=== PATIENT | female | born 1995 | race Caucasian/White ===

== ENCOUNTER 2019-02-28 16:59 | Emergency (ER) | payer OTHER ==
--- NOTE | 2019-02-28 17:50 | ER Document Report ---
ED Medical Screen (RME) - General Chief Complaint: Vag Bleeding, +preg <12wks Stated Complaint: VAGINAL BLEEDING Time Seen by Provider: 02/28/19 17:47 Mode of Arrival: Ambulatory Information source: Patient Notes: Patient is currently 6 weeks G1, P0 reports vaginal bleeding that started today. 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 Patient denies any pelvic tenderness or urinary symptoms. Patient has not had an ultrasound to confirm the . I have greeted and performed a rapid initial assessment of this patient. A comprehensive ED assessment and evaluation of the patient, analysis of test results and completion of the medical decision making process will be conducted by additional ED providers. - Related Data Allergies/Adverse Reactions: amoxicillin Allergy (Verified 02/28/19 17:45) hands and feet swell Physical Exam - Vital signs Vitals: Temp Pulse Resp BP Pulse Ox 97.9 F 97 16 146/75 H 100 02/28/19 17:07 02/28/19 17:07 02/28/19 17:07 02/28/19 17:07 02/28/19 17:07 - General General appearance: Appears well, Alert In distress: None Course - Vital Signs Vital signs: Temp Pulse Resp BP Pulse Ox 97.9 F 97 16 146/75 H 100 02/28/19 17:07 02/28/19 17:07 02/28/19 17:07 02/28/19 17:07 02/28/19 17:07
[2019-02-28 18:50] LABS: ABSOLUTE EOSINOPHILS # (AUTO) 0.1 10^3/uL (0.0-0.6); ABSOLUTE MONOCYTES (AUTO) 0.6 10^3/uL (0.1-1.4); ABSOLUTE NEUT (AUTO) 5.6 10^3/uL (1.7-8.2); BASOPHILS % (AUTO) 0.2 % (0-2); HEMOGLOBIN 13.2 g/dL (12.0-15.5); MEAN CORPUSCULAR HEMOGLOBIN 28.3 pg (27.0-33.4); MEAN CORPUSCULAR HGB CONC 33.8 g/dL (32.0-36.0); MEAN CORPUSCULAR VOLUME 84 fl (80-97); MONOCYTES % (AUTO) 6.6 % (3-13); PLATELET COUNT 210 10^3/uL (150-450); RED BLOOD COUNT 4.66 10^6/uL (3.72-5.28); RED CELL DISTRIBUTION WIDTH 14.3 % (11.5-14.0); SEGMENTED NEUTROPHILS % (AUTO) 60.2 % (42-78); TOTAL CELLS COUNTED % (AUTO) 100 %; WHITE BLOOD COUNT 9.3 10^3/uL (4.0-10.5)
--- NOTE | 2019-02-28 21:46 | RADIOLOGY REPORT (SQ) ---
EXAM DESCRIPTION: US TRANSVAGINAL COMPLETED DATE/TME: 02/28/2019 17:49 CLINICAL HISTORY: 23 years, Female, vag bleeding COMPARISON: None. TECHNIQUE: Axial 2-D grayscale images of the pelvis were obtained. Doppler was utilized. LIMITATIONS: None. FINDINGS: Uterus measures 9.4 x 6.3 x 6.5 cm in size. An intrauterine gestational sac is identified with measurements as follows: Mean sac diameter is 1.22 cm for an estimated gestational age of six weeks and zero days. Yolk sac is evident, measuring 0.22 cm. pole was not clearly identified. Cervix is closed, measuring 4.0 cm in length. Right ovary measures 1.4 x 3.0 x 3.1 cm in size. It demonstrates normal echogenicity and elements of Doppler flow. Left ovary measures 3.3 x 2.4 x 2.7 cm in size. It demonstrates several normal-appearing peripheral follicles as well as Doppler flow. A tiny amount of free fluid is noted in the region of the left adnexa. IMPRESSION: No acute findings within the pelvis. Intrauterine gestational sac identified, as above described. No pole is currently present. Continued clinical and sonographic follow-up is recommended to confirm the development of a viable intrauterine . copyright 2010 [employer]- All Rights Reserved
[2019-02-28 22:10] LABS: APPEARANCE,URINE CLEAR; BILIRUBIN,URINE NEGATIVE (NEGATIVE); COLOR,URINE STRAW; GLUCOSE, URINE NEGATIVE (NEGATIVE); KETONES,URINE NEGATIVE (NEGATIVE); LEUKOCYTE ESTERASE,URINE NEGATIVE (NEGATIVE); NITRITE,URINE NEGATIVE (NEGATIVE); PROTEIN,URINE NEGATIVE (NEGATIVE); URINE SPECIFIC GRAVITY 1.003; UROBILINOGEN,URINE NEGATIVE mg/dL (<2.0)
[2019-02-28] MEDS ORDERED: LIDOCAINE 1% INJ (10 MG/ML) 10 ML MDV INJ ONE (22:14)
--- NOTE | 2019-02-28 23:01 | ER Document Report ---
ED GI/ - General Chief Complaint: Vaginal Bleeding Stated Complaint: VAGINAL BLEEDING Time Seen by Provider: 02/28/19 17:47 Primary Care Provider: [facility] [Provider Group] - Follow up tomorrow Mode of Arrival: Ambulatory Notes: Patient is a 23-year-old female that comes to the emergency department for chief complaint of vaginal bleeding. She states this started prior to arrival but stopped. She denies any current pain or bleeding. She denies flank pain, fever, nausea or vomiting. She states she is G1, P0 at 6 weeks gestation by last menstrual period, she had a positive urinalysis test with [facility] that she saw within the past day. She denies any medical history or daily medications. - Related Data Allergies/Adverse Reactions: amoxicillin Allergy (Verified 02/28/19 17:45) hands and feet swell Home Medications: Vitamins Past Medical History - General Information source: Patient Last Menstrual Period: 01/15/2019 - Social History Smoking Status: Never Smoker Chew tobacco use (# tins/day): No Frequency of alcohol use: None Drug Abuse: None Lives with: Family Family History: Reviewed & Not Pertinent Patient has suicidal ideation: No Patient has homicidal ideation: No - Medical History Medical History: Negative Surgical Hx: Negative - Immunizations Immunizations up to date: Yes Hx Diphtheria, Pertussis, Tetanus Vaccination: Yes Review of Systems - Review of Systems Constitutional: No symptoms reported EENT: No symptoms reported Cardiovascular: No symptoms reported Respiratory: No symptoms reported Gastrointestinal: No symptoms reported Genitourinary: No symptoms reported Female Genitourinary: See HPI Musculoskeletal: No symptoms reported Skin: No symptoms reported Hematologic/Lymphatic: No symptoms reported Neurological/Psychological: No symptoms reported Physical Exam - Vital signs Vitals: Temp Pulse Resp BP Pulse Ox 97.9 F 97 16 146/75 H 100 02/28/19 17:07 02/28/19 17:07 02/28/19 17:07 02/28/19 17:07 02/28/19 17:07 - Notes Notes: GENERAL: Alert, interacts well. No acute distress. HEAD: Normocephalic, atraumatic. EYES: Pupils equal, round, and reactive to light. Extraocular movements intact. ENT: Oral mucosa moist, tongue midline. Oropharynx unremarkable. Airway patent. NECK: Full range of motion. Supple. Trachea midline. LUNGS: Clear to auscultation bilaterally, no wheezes, rales, or rhonchi. No respiratory distress. HEART: Regular rate and rhythm. No murmur ABDOMEN: Soft, non-tender. Non-distended. EXTREMITIES: Moves all 4 extremities spontaneously. No edema, normal radial and dorsalis pedis pulses bilaterally. No cyanosis. BACK: no cervical, thoracic, lumbar midline tenderness. No saddle anesthesia, normal distal neurovascular exam. Moves all extremities in full range of motion. NEUROLOGICAL: Alert and oriented x3. Normal speech. Cranial nerves II through XII grossly intact. PSYCH: Normal affect, normal mood. SKIN: Warm, dry, normal turgor. No rashes or lesions noted. Course - Re-evaluation Re-evalutation: Patient is alert and well-appearing. Unremarkable vital signs. No current symptoms. Soft benign abdomen. RhoGam is not indicated. CBC unremarkable. hCG is very elevated. Ultrasound showing intrauterine at 6 weeks with no noted heartbeat. Recommendation is close repeat follow-up. I discussed at length with patient, discussed with her possible miscarriage but this could not be confirmed, this will need to be repeated and this still could be progressing and viable. I discussed different options and expectations, patient states she already has [facility] and she will follow closely for additional management. Discussed return precautions. Patient states understanding and agreement. - Vital Signs Vital signs: Temp Pulse Resp BP Pulse Ox 98.1 F 72 14 120/65 100 02/28/19 23:08 02/28/19 23:08 02/28/19 23:08 02/28/19 23:08 02/28/19 23:08 - Laboratory Result Diagrams: 02/28/19 18:13 Laboratory results interpreted by me: 02/28/19 02/28/19 02/28/19 18:13 18:13 19:30 RDW 14.3 H Beta HCG, Quant 64740.00 H Urine Blood MODERATE H Discharge - Discharge Clinical Impression: Vaginal bleeding affecting early Condition: Stable Disposition: HOME, SELF-CARE Additional Instructions: Your ultrasound shows a in the uterus with a closed cervix measuring at 6 weeks. No clear heartbeat is identified. Your hormone is eleva tam. It is not certain at this time whether this will proceed or if you will develop a miscarriage. I recommend repeat hCG ( hormone level) and possibly repeat ultrasound in 3 days with your [facility]. I also recommend pelvic rest, avoid lifting, intense exercise, or sexual intercourse until cleared by [facility]. Return for any concerning symptoms including severe pain, heavy bleeding with dizziness, passing out, or any other concerning or worsening symptoms. Forms: Return to Work Referrals: [facility] [Provider Group] - Follow up tomorrow
[2019-02-28 23:10] VITALS: BP 120/65
[2019-03-01 00:36] LABS: CHLAM PCR NOT DETECTED (NOT DETECT)
== END 2019-02-28 23:08 | disposition home or self-care (01) ==
LOC: ER 16:59
DX: O20.9 Hemorrhage in early pregnancy, unspecified (principal); Z3A.01 Less than 8 weeks gestation of pregnancy; Z88.0 Allergy status to penicillin
CPT/HCPCS: 36415; 76817; 81001; 84702; 85025; 86900; 86901; 87491; 87591; 99284